=== PATIENT | male | born 1960 | race Caucasian/White ===

== ENCOUNTER 2018-08-28 10:14 | Emergency (ER) | payer OTHER ==
[2018-08-28 10:38] VITALS: BP 105/61
--- NOTE | 2018-08-28 11:19 | UC ---
Skin Complaint HPI - HPI Summary HPI Summary: got mosquito bite on L elbow yesterday and today elbow is red and swollen. he has had at least 2 other occasions where he got and infection from bug bites that need antibiotic. has tried no treatment for this episode - History of Current Complaint Chief Complaint: UCUpperExtremity Time Seen by Provider: 08/28/18 11:06 Stated Complaint: PAIN IN LEFT ELBOW Hx Obtained From: Patient Onset/Duration: Sudden Onset Current Severity: Mild Pain Intensity: 3 Character: Swelling, Pruritus, Redness Aggravating Factor(s): Touch Alleviating Factor(s): Nothing Associated Signs & Symptoms: Positive: Negative Related History: Insect Bite/Sting Similar Episode/Dx as: cellulitis - Allergy/Home Medications Allergies/Adverse Reactions: Allergies Allergy/AdvReac Type Severity Reaction Status Date / Time Hay/Grass Allergy Intermediate Eyes Uncoded 08/28/18 10:38 Itchy/Swollen/Red/Watery Methyl prednisone Allergy Intermediate Nausea Uncoded 08/28/18 10:38 PMH/Surg Hx/FS Hx/Imm Hx Previously Healthy: Yes - Surgical History Surgical History: None - Family History Known Family History: Positive: Non-Contributory - Social History Occupation: Employed Full-time Lives: With Family Alcohol Use: Rare Substance Use Type: None Smoking Status (MU): Never Smoked Tobacco Review of Systems All Other Systems Reviewed And Are Negative: Yes Constitutional: Positive: Negative Skin: Positive: Other - red swollen L elbow Respiratory: Positive: Negative Cardiovascular: Positive: Negative Musculoskeletal: Positive: Negative Neurological: Positive: Negative. Negative: Headache Psychological: Positive: Negative Is Patient Immunocompromised?: No Physical Exam Triage Information Reviewed: Yes Appearance: Well-Appearing, No Pain Distress, Well-Nourished Vital Signs: Initial Vital Signs Temp 100.1 F 08/28/18 10:33 Pulse 79 08/28/18 10:33 Resp 18 08/28/18 10:33 BP 105/61 08/28/18 10:33 Pulse Ox 99 08/28/18 10:33 Vital Signs Reviewed: Yes Respiratory Exam: Normal Respiratory: Positive: Lungs clear Cardiovascular Exam: Normal Cardiovascular: Positive: RRR Musculoskeletal Exam: Normal Musculoskeletal: Positive: Strength Intact, ROM Intact Psychological Exam: Normal Skin Exam: Other - left elbow is swollen, erythemic and warm to the touch, 2 small erythemic raised areas appear like mosquito bites, no streaking noted. . demonstrates full ROM elbow. Course/Dx - Differential Diagnoses - Skin Complaint Differential Diagnoses: Abscess, Allergic Reaction, Cellulitis, Foreign Body - Diagnoses Provider Diagnosis: Cellulitis Discharge - Sign-Out/Discharge Documenting (check all that apply): Patient Departure All imaging exams completed and their final reports reviewed: No Studies - Discharge Plan Condition: Good Disposition: HOME Prescriptions: Cephalexin CAP* [Keflex 500 CAP*] 500 mg PO QID #28 cap Patient Education Materials: Cellulitis (ED) Referrals: Alfredo Toussaint MD [Primary Care Provider] - 2 Days (if no improvement) Additional Instructions: start keflex antibiotic and take as directed apply benadryl gel (or cream) as directed on insect bites ibuprofen 600mg every 6 hours with food as needed for pain report to ER if swelling, fever or symptoms worsen at any time - Billing Disposition and Condition Condition: GOOD Disposition: Home
== END 2018-08-28 11:35 | disposition home or self-care (01) ==
LOC: UCEAST 10:14
DX: L03.113 Cellulitis of right upper limb (principal)
CPT/HCPCS: 99212; G0463